=== PATIENT | male | born 1935 | race Caucasian/White ===

== ENCOUNTER → 2017-10-20 | Outpatient (CLI) | payer MEDICARE ==
[~2017-10-20] MED LIST: AMOX-367 PO; CARV3.122 PO; TRAM50TA2 PO; WARF1TAB74 PO; [UNRECOGNIZED DRUG - OTHER] PO; [UNRECOGNIZED DRUG - REMARK] PO
== END | disposition home or self-care (01) ==
LOC: CFH 12:02
PROVIDERS: ATTEND Nurse Practitioner Primary Care
DX: M19.012 Primary osteoarthritis, left shoulder (principal); I10 Essential (primary) hypertension; R97.20 Elevated prostate specific antigen [PSA]; R01.1 Cardiac murmur, unspecified; M79.675 Pain in left toe(s); G47.00 Insomnia, unspecified; K59.00 Constipation, unspecified; I71.4 Abdominal aortic aneurysm, without rupture; F03.90 Unspecified dementia, unspecified severity, without behavioral disturbance, psychotic disturbance, mood disturbance, and anxiety; R53.83 Other fatigue; D64.9 Anemia, unspecified; R25.1 Tremor, unspecified; E78.2 Mixed hyperlipidemia; Z72.0 Tobacco use; Z79.01 Long term (current) use of anticoagulants

== ENCOUNTER 2018-07-21 15:02 | Emergency (ER) | payer MEDICARE ==
[~2018-07-21] VITALS: Ht 175.3 cm; Wt 57.0 kg
[2018-07-21] MEDS ORDERED: SODIUM CHLORIDE FLUSH 10ML SYR IVF ONE (15:30)
--- NOTE | 2018-07-21 15:45 | NUR ---
ASSUMED CAR EOF PT AT THIS TIME FROM [facility]. PT C/O LEFT SHOULDER MCKIN[place] FOR A COUPLE OF MONTHS BUT LEFT UPPER ARM PAIN STARTED YESTERDAY. PT DENIES CP OR SOB. PT DENIES ANY OTHER COMPLAINT EXCEPT CONSTIPATION WITH LAST BM 3 DAYS AGO. PT ON MONITOR.
[2018-07-21 15:53] LABS: ALANINE AMINOTRANSFERASE 14 U/L (12-78); ALBUMIN 3.1 g/dL (3.4-5.0); ANION GAP 8 mmol/L (5-15); CALCIUM 9.3 mg/dL (8.5-10.1); CHLORIDE 112 mmol/L (98-107); CREATININE 0.97 mg/dL (0.7-1.3)
[2018-07-21 15:55] LABS: BASOPHILS % (AUTO) 0 % (0-1); EOSINOPHILS # (AUTO) 0.01 x10^3/uL (0-0.4); EOSINOPHILS % (AUTO) 0 % (1-7); LYMPHOCYTES # (AUTO) 0.55 x10^3/uL (1-3.4); LYMPHOCYTES % (AUTO) 6 % (22-44); MD NO; MEAN CORPUSCULAR HEMOGLOBIN 29.2 pg (27.5-34.5); MEAN CORPUSCULAR HGB CONC 33.1 g/dL (33.2-36.2); MEAN CORPUSCULAR VOLUME 88.3 fL (81-97); MEAN PLATELET VOLUME 8.1 fL (7.4-10.4); MONOCYTES # (AUTO) 0.88 x10^3/uL (0.2-0.8); MONOCYTES % (AUTO) 9 % (2-9); NEUTROPHILS # (AUTO) 7.95 x10^3/uL (1.8-6.8); NEUTROPHILS % (AUTO) 85 % (42-75); PLATELET COUNT 310 x10^3/uL (130-400); RED BLOOD COUNT 3.96 x10^6/uL (4.38-5.82); RED CELL DISTRIBUTION WIDTH 16.7 % (9.4-14.8)
[2018-07-21 15:57] LABS: ALKALINE PHOSPHATASE 86 U/L (45-117); BILIRUBIN,TOTAL 0.6 mg/dL (0.2-1.0); TOTAL PROTEIN 7.5 g/dL (6.4-8.2); TROPONIN I < 0.015 ng/mL (0.000-0.045)
--- NOTE | 2018-07-21 16:04 | NUR ---
PA STUDENT AT BEDSIDE. REPORT TO STERLING Guerrero RN.
[2018-07-21] MEDS ORDERED: KETOROLAC 30 MG/1 ML IM ONE (16:30)
[2018-07-21] MEDS ORDERED: KETOROLAC 30 MG/1 ML ONE (16:33)
--- NOTE | 2018-07-21 16:34 | NUR ---
Pt to x ray, requesting to go home, pt educated on plan of care, pt agrees to stay for further treatment, pt states he drove himself here to ed today. Able to transfer from gurney to wheelchair without assistance.
[2018-07-21 16:47] VITALS: BP 112/67
[2018-07-21 16:48] LABS: INTERNATIONAL NORMALIZED RATIO 3.32 (0.93-1.1); PROTHROMBIN TIME 33.3 Seconds (9.6-11.5)
[2018-07-21] MEDS ORDERED: KETOROLAC 30 MG/1 ML IVPush ONE (17:00)
--- NOTE | 2018-07-21 17:33 | NUR ---
Pt increasingly agitated and upset about wait time for results. Pt educated on ED process and that MD/PA will be in to recheck as soon as all results are complete. Pt educated he is allowed to leave at any time but is encouraged to stay
--- NOTE | 2018-07-21 17:36 | NUR ---
notified of pts request for recheck. Pt to be discharged
--- NOTE | 2018-07-21 17:42 | NUR ---
TASK RN: RN in to d/c IV, IV removed tip intact. This RN attempted answer questions regarding discharge, pt repeatedly asked, "when will I see the doctor?" and "will I get pills?" Primary RN, Ritu, aware of these concerns.
--- NOTE | 2018-07-21 18:09 | NUR ---
Pt verbalized understanding of DC instructions, sling applied. Pt took it off to drive home. Pt denies any further needs/conerns. Alert and oriented x4 upon dc.
== END 2018-07-21 18:11 | disposition home or self-care (01) ==
LOC: ED 16:43
DX: M19.012 Primary osteoarthritis, left shoulder (principal); I25.2 Old myocardial infarction
CPT/HCPCS: 36415; 71045; 73030; 80053; 84484; 85025; 85610; 93005; 96374; 99284; J1885

== ENCOUNTER 2019-01-29 14:07 | Emergency (ER) | payer MEDICARE ==
[~2019-01-29] VITALS: Ht 172.7 cm; Wt 55.6 kg
--- NOTE | 2019-01-29 14:44 | NUR ---
LATE NOTE ENTRY DUE TO PT CARE. Pt presents to ED with c/o left hand swelling with out trauma starting yesterday. Pt has 2 + radial pulses equal bilaterally with cap. refill less than 3 seconds. Pt resting on gurney connected to NIBP cuff, continous pulse ox monitor, and call light is within reach. Bedrails up x 2. Hand is elevated above heart level. No needs expressed at this time.
[2019-01-29 15:03] LABS: BASOPHILS # (AUTO) 0.01 x10^3/uL (0-0.1); BASOPHILS % (AUTO) 0 % (0-1); EOSINOPHILS # (AUTO) 0.05 x10^3/uL (0-0.4); EOSINOPHILS % (AUTO) 1 % (1-7); LYMPHOCYTES # (AUTO) 0.58 x10^3/uL (1-3.4); LYMPHOCYTES % (AUTO) 9 % (22-44); MD NO; MEAN CORPUSCULAR HEMOGLOBIN 28.9 pg (27.5-34.5); MEAN CORPUSCULAR HGB CONC 32.2 g/dL (33.2-36.2); MEAN CORPUSCULAR VOLUME 89.8 fL (81-97); MEAN PLATELET VOLUME 7.6 fL (7.4-10.4); MONOCYTES # (AUTO) 0.54 x10^3/uL (0.2-0.8); MONOCYTES % (AUTO) 8 % (2-9); NEUTROPHILS # (AUTO) 5.42 x10^3/uL (1.8-6.8); NEUTROPHILS % (AUTO) 82 % (42-75); PLATELET COUNT 212 x10^3/uL (130-400); RED BLOOD COUNT 3.72 x10^6/uL (4.38-5.82); RED CELL DISTRIBUTION WIDTH 16.6 % (9.4-14.8)
[2019-01-29 15:12] LABS: ALBUMIN 3.1 g/dL (3.4-5.0); ANION GAP 7 mmol/L (5-15); CALCIUM 9.2 mg/dL (8.5-10.1); CHLORIDE 111 mmol/L (98-107); CREATININE 1.09 mg/dL (0.7-1.3)
[2019-01-29 16:03] VITALS: BP 127/54
--- NOTE | 2019-01-29 16:03 | NUR ---
US AT BEDSIDE AND COMPLETED.
--- NOTE | 2019-01-29 16:16 | NUR ---
ALL RESULTS BACK AT THIS TIME, CHART UP FOR RECHECK.
--- NOTE | 2019-01-29 16:17 | NUR ---
AT BEDSIDE FOR DISCUSSION OF POC.
--- NOTE | 2019-01-29 16:48 | NUR ---
Patient/Caregiver given discharge instructions and they have confirmed that they understand the instructions. Patient ambulatory with steady gait.
== END 2019-01-29 16:49 | disposition home or self-care (01) ==
LOC: ED 16:05
DX: I82.622 Acute embolism and thrombosis of deep veins of left upper extremity (principal); M19.90 Unspecified osteoarthritis, unspecified site
CPT/HCPCS: 36415; 80048; 82040; 84550; 85025; 99284